=== PATIENT | female | born 1980 | race Caucasian/White ===

== ENCOUNTER 2017-05-03 20:40 | Emergency (ER) | payer BC ==
[2017-05-03 21:11] LABS: APPEARANCE SLT CLOUDY (CLEAR); BILIRUBIN NEGATIVE (NEGATIVE); COLOR YELLOW (YELLOW); GLUCOSE NEGATIVE (NEGATIVE); KETONE NEGATIVE (NEGATIVE); NITRITE NEGATIVE (NEGATIVE); PROTEIN NEGATIVE (NEGATIVE); UROBILINOGEN NORMAL (NORMAL)
[2017-05-03 21:13] LABS: RED CELLS - URINE 0-5 /hpf (0-5); WHITE CELLS - URINE 0-5 /hpf (0-5)
[2017-05-03 21:14] LABS: BACTERIA FEW /hpf (NONE SEEN)
[2017-05-03 22:29] LABS: HCG URINE POSITIVE (NEGATIVE)
[2017-05-03 22:40] LABS: BASOPHILS 0.1 % (0-2); EOSINOPHILS 3.5 % (0-7); HEMATOCRIT 39.4 % (36.0-48.0); HEMOGLOBIN 13.7 g/dL (12-16); IMMATURE GRANULOCYTES 0.2 % (0-5); LYMPHOCYTES 25.2 % (15-50); MCH 31.6 pg (26.0-34.0); MCHC 34.8 g/dL (31.0-37.0); MCV 90.8 fL (80.0-100.0); MEAN PLATELET VOLUME 8.6 fL (7.4-10.4); MONOCYTES 7.4 % (2-11); NEUTROPHILS 63.6 % (40-80); PLATELET COUNT 326 10x3/uL (130-400); RBC 4.34 10x6/uL (4.00-5.40); RDW 13.9 % (11.5-14.5); WBC 13.7 10x3/uL (4.8-10.8)
[2017-05-03 22:54] LABS: ALBUMIN 3.5 g/dL (3.4-5.0); ALKALINE PHOSPHATASE 56 U/L (46-116); ALT (SGPT) 20 U/L (10-68); CALC OSMOLALITY 276 mosm/kg (275-300); CALCIUM 8.4 mg/dL (8.5-10.1); CARBON DIOXIDE 23.8 mmol/L (21.0-32.0); CHLORIDE - SERUM 103 mmol/L (98-107); CREATININE - SERUM 0.7 mg/dL (0.6-1.3); GLUCOSE 92 mg/dL (74-106); POTASSIUM - SERUM 3.8 mmol/L (3.5-5.1); PROTEIN - SERUM 7.2 g/dL (6.4-8.2); SODIUM 138 mmol/L (136-145); UREA NITROGEN 15 mg/dL (7-18); eGFR NON AFRICAN AMERICAN > 90 mL/min (90-120)
[2017-05-03 23:22] LABS: AMYLASE - SERUM 43 U/L (25-115); HCG - QUANTITATIVE (MATERNAL) 30395 mIU/mL; LIPASE 88 U/L (73-393)
== END 2017-05-04 00:30 | disposition home or self-care (01) ==
LOC: D.ER 20:40
PROVIDERS: Family Medicine
DX: O23.41 Unspecified infection of urinary tract in pregnancy, first trimester (principal); Z3A.01 Less than 8 weeks gestation of pregnancy; R10.9 Unspecified abdominal pain

== ENCOUNTER 2018-12-05 12:54 | Emergency (ER) | payer MEDICAID ==
[~2018-12-05] VITALS: Ht 167.6 cm; Wt 84.1 kg
[2018-12-05 12:58] VITALS: BP 122/90; Ht 167.6 cm; Wt 84.1 kg
[2018-12-05] MEDS ORDERED: VOLTAREN75 MG PO (14:57)
[2018-12-05] MEDS ORDERED: OMEPRAZOLE20 M1 PO (14:57)
== END 2018-12-05 15:25 | disposition home or self-care (01) ==
LOC: D.ER 12:54
DX: S63.91XA Sprain of unspecified part of right wrist and hand, initial encounter (principal); W19.XXXA Unspecified fall, initial encounter

== ENCOUNTER 2019-12-01 12:49 | Emergency (ER) | payer MEDICAID ==
[~2019-12-01] VITALS: Ht 167.6 cm; Wt 77.3 kg
[~2019-12-01 12:49] MED LIST: OMEPRAZOLE20 M1 PO; VOLTAREN75 MG PO
[2019-12-01 13:10] VITALS: BP 146/88; Ht 167.6 cm; Wt 77.3 kg
[2019-12-01] MEDS ORDERED: NAPROSYN500 MG PO (16:05)
[2019-12-01] MEDS ORDERED: METHOCARBAMOL500 MG PO (16:05)
== END 2019-12-01 16:49 | disposition home or self-care (01) ==
LOC: D.ER 12:49
DX: S83.92XA Sprain of unspecified site of left knee, initial encounter (principal); S80.02XA Contusion of left knee, initial encounter; X58.XXXA Exposure to other specified factors, initial encounter

== ENCOUNTER 2020-07-01 20:26 | Emergency (ER) | payer MEDICAID ==
[~2020-07-01 20:26] MED LIST changes: +METHOCARBAMOL500 MG PO; +NAPROSYN500 MG PO
[2020-07-01 20:52] VITALS: BP 127/81; Ht 167.6 cm
[2020-07-01] MEDS ORDERED: HYDROCORTISONE30 G9 TOPICAL (21:22)
== END 2020-07-01 21:29 | disposition home or self-care (01) ==
LOC: D.ER 20:26
DX: K64.9 Unspecified hemorrhoids (principal)